=== PATIENT | female | born 1975 | race Caucasian/White ===

== ENCOUNTER 2020-03-16 17:20 | Emergency (ER) | payer SELFPAY ==
[2020-03-16] MEDS ORDERED: Succinylcholine 200 MG/10 ml SYRINGE FS ONE (17:21)
[2020-03-16] MEDS ORDERED: Iopamidol 370 76% 125 ML VIAL FS ONE (17:21)
[2020-03-16 18:02] LABS: Prothrombin Time 13.2 sec (12.0-14.7)
[2020-03-16 18:03] LABS: PTT 29.3 sec (22.9-36.1)
--- NOTE | 2020-03-16 18:03 | CT ---
CT BRAIN NONCONTRAST: DATE: 03/16/2020 5:41 PM HISTORY: 44-year-old female with acute stroke symptoms: Right-sided paralysis. Dr. Simons discussed the findings and recommendations by telephone with ER physician Dr. Perez at 5:56 PM 03/16/2020 COMPARISON: none FINDINGS: There is a dense left MCA sign consistent with clot in the M1 segment of the left middle cerebral art roxanna, extending into one of the M2 branches. At the left lower lateral posterior temporal and parieto-occipital cortex, there is apparent cortical thickening with effacement of local sulci, and mild hyperdensity, measuring approximately 5 x 1.5 cm. There is no mass effect or midline shift. No definite acute intra-axial or extra-axial hemorrhage. Ve ntricles are normal in size and configuration. Calvarium is intact. IMPRESSION: 1) thrombus in M1 segment and proximal M2 branch of left middle cerebral artery. 2) faint ill-defined elongated left lateral temporal parietal occipital intra-axial abnormality. Exac t etiology uncertain. This could be a low-grade glioma. Recommend MRI of brain with and without contrast on an elective basis.
[2020-03-16] MEDS ORDERED: Dexamethasone 4 mg/ml Vial ONE (18:09)
[2020-03-16 18:14] LABS: ALT (SGPT) 47 U/L (8-55); AST (SGOT) 54 U/L (5-34); Albumin 3.6 g/dL (3.5-5.0); Alkaline Phosphatase 93 U/L (40-110); Anion Gap 20 mmol/L (10-20); BUN (Urea Nitrogen) 9 mg/dL (7.0-18.7); Bilirubin, Total 0.3 mg/dL (0.2-1.2); CK (CPK) 32 U/L (29-168); Calc. Creatinine Clearance 0 mL/min (70-130); Calcium 8.6 mg/dL (7.8-10.44); Carbon Dioxide 17 mmol/L (22-29); Chloride 108 mmol/L (98-107); Estimated GFR-MDRD 83; Globulin 3.7 g/dL (2.4-3.5); Glucose 158 mg/dL (70-105); Potassium 5.2 mmol/L (3.5-5.1); Protein, Total 7.3 g/dL (6.0-8.3); Sodium 140 mmol/L (136-145)
[2020-03-16] MEDS ORDERED: Lidocaine-Prilocaine 2.5% Cream 5 GM TUBE ONE (18:20)
[2020-03-16] MEDS ORDERED: carBAMazepine 200 MG TAB ONE (18:20)
[2020-03-16 18:21] LABS: Hemoglobin 11.6 g/dL (12.0-16.0); Mean Corpuscular HGB CONC 30.1 g/dL (32.0-36.0); Mean Corpuscular Hemoglobin 22.7 pg (27.0-31.0); Mean Corpuscular Volume 75.5 fL (78.0-98.0); Mean Platelet Volume 7.6 fL (7.4-10.4); Platelet Count 134 thou/uL (130-400); RBC Distribution Width 19.2 % (11.5-14.5); Red Blood Cell (RBC) Count 5.11 mill/uL (4.20-5.40); White Blood Cell (WBC) Count 11.9 thou/uL (4.8-10.8)
[2020-03-16 18:24] LABS: Anisocytosis SLIGHT = 6-15 cells (100X) (0-5/hpf); Band 20 % (5-11); Eosinophils 2 % (0-10); Lymphocytes 7 % (21-51); MDiff Complete? YES; Metamyelocyte 1 % (0-0); Monocytes 2 % (0-10); Myelocyte 4 % (0-0); Neutrophil 54 % (42-75); Nucleated RBC 16 % (0); Platelet Morphology Comment Appears Adequate; Polychromasia SLIGHT = 2-3 cells (100X) (0-2/hpf); Reactive Lymphocytes 10 % (0-10)
--- NOTE | 2020-03-16 18:32 | CT ---
CT ANGIOGRAM NECK WITH CONTRAST CT ANGIOGRAM BRAIN WITH CONTRAST: DATE: 03/16/2020 5:58 PM HISTORY: 44-year-old female with acute stroke At 6:17 PM 03/16/2020 Dr. Simons discussed the MCA clot with Dr. Perez of the ER At 6:29 PM 03/16/2020 Dr. Simons notified data warehouse developer Mickie Frederick of the severe pulmonary embolism. e will notify Dr. Olmstead as soon as possible TECHNIQUE: After IV contrast injection, arterial bolus chasing technique scan performed from AP window to vertex of head. Coronal and sagittal 3-D MIP reconstructions. FINDINGS: The CTA confirms a long filling defect which begins at the proximal aspect of the M1 segment of the l eft MCA, and there is an apparently occludes the rest of the M1 segment as well as proximal portion of at least one of the M2 segments. There are contrast opacified other M2 branches and more distal br anches of the left MCA. The bilateral carotid siphons, M1 segment of right MCA, A1 and A2 segments of bilateral ACAs, intracr anial left vertebral, basilar, and bilateral final cleaner, are patent. The intracranial right vertebral artery terminates in PICA. What was thought to be a possible left temporal parietal occipital low-grade glioma on the original n oncontrast CT, does not persist on these additional images, and was probably artifact. Because of extremely large body habitus, the great vessels arising from the aortic arch are suboptima lly visualized. The aortic arch, proximal left common carotid artery, are probably normal in caliber. The cervical portions of the bilateral common carotid arteries and cervical portions of bila teral internal carotid arteries, are probably within normal limits in caliber. There is flow in the bilateral cervical portions of vertebral arteries, although they are poorly visu alized because of body habitus. There is severe biapical pulmonary infiltrates. There is a large volumes of thrombus in the distal portions of the bilateral main pulmonary arteries and the proximal branches. IMPRESSION: 1) acute thrombus in M1 segment and proximal portion of an M2 segment of the left middle cerebral art roxanna. 2) bilateral pulmonary thromboembolism with large clot burden 3) severe infiltrates: Evidence for severe COVID-19 pneumonia.
[2020-03-16 18:35] LABS: CKMB 1.6 ng/mL (0-6.6)
--- NOTE | 2020-03-16 18:50 | RAD ---
RADIOGRAPH CHEST 1 VIEW: DATE: 03/16/2020 TIME: 6:37 PM HISTORY: 44-year-old female with dyspnea COMPARISON: none FINDINGS: Lungs are hypoinflated. There are diffuse, somewhat severe interstitial infiltrates throughout both l ungs. The image is degraded by patient breathing motion artifact, especially the lung bases. No pneumothorax. IMPRESSION: Diffuse bilateral infiltrates: Evidence for bilateral COVID-19 pneumonia
--- NOTE | 2020-03-16 19:00 | CT ---
CT ANGIOGRAM NECK WITH CONTRAST CT ANGIOGRAM BRAIN WITH CONTRAST: DATE: 03/16/2020 5:58 PM HISTORY: 44-year-old female with acute stroke At 6:17 PM 03/16/2020 Dr. Simons discussed the MCA clot with Dr. Perez of the ER At 6:29 PM 03/16/2020 Dr. Simons notified house painting instructor Mickie Frederick of the severe pulmonary embolism. e will notify Dr. Olmstead as soon as possible TECHNIQUE: After IV contrast injection, arterial bolus chasing technique scan performed from AP window to vertex of head. Coronal and sagittal 3-D MIP reconstructions. FINDINGS: The CTA confirms a long filling defect which begins at the proximal aspect of the M1 segment of the l eft MCA, and there is an apparently occludes the rest of the M1 segment as well as proximal portion of at least one of the M2 segments. There are contrast opacified other M2 branches and more distal br anches of the left MCA. The bilateral carotid siphons, M1 segment of right MCA, A1 and A2 segments of bilateral ACAs, intracr anial left vertebral, basilar, and bilateral binding cementer french cord, are patent. The intracranial right vertebral artery terminates in PICA. What was thought to be a possible left temporal parietal occipital low-grade glioma on the original n oncontrast CT, does not persist on these additional images, and was probably artifact. Because of extremely large body habitus, the great vessels arising from the aortic arch are suboptima lly visualized. The aortic arch, proximal left common carotid artery, are probably normal in caliber. The cervical portions of the bilateral common carotid arteries and cervical portions of bila teral internal carotid arteries, are probably within normal limits in caliber. There is flow in the bilateral cervical portions of vertebral arteries, although they are poorly visu alized because of body habitus. There is severe biapical pulmonary infiltrates. There is a large volumes of thrombus in the distal portions of the bilateral main pulmonary arteries and the proximal branches. IMPRESSION: 1) acute thrombus in M1 segment and proximal portion of an M2 segment of the left middle cerebral art roxanna. 2) bilateral pulmonary thromboembolism with large clot burden 3) severe infiltrates: Evidence for severe COVID-19 pneumonia. Transcribed Date/Time: 03/16/2020 6:59 PM
== END 2020-03-16 21:57 | disposition short-term general hospital (02) ==
LOC: MADERS 17:20
DX: U07.1 COVID-19 (principal); J12.89 Other viral pneumonia; I66.02 Occlusion and stenosis of left middle cerebral artery; I26.99 Other pulmonary embolism without acute cor pulmonale
CPT/HCPCS: 0042T; 36416; 70450; 70496; 70498; 71045; 80053; 82550; 82553; 83605; 84484; 85025; 85379; 85610; 85730; 86140; 93005; 94760; 96365; 96375; J1100; J2997; Q9967

== ENCOUNTER 2022-08-20 13:18 | Outpatient (CLI) | payer OTHER | END 2022-08-20 13:19 | disposition home or self-care (01) | LOC: MADRAD 13:18 | PROVIDERS: ATTEND Registered Nurse | DX: M25.561 Pain in right knee (principal); R10.84 Generalized abdominal pain | CPT/HCPCS: 74019 ==

== ENCOUNTER 2022-11-12 21:21 | Emergency (ER) | payer OTHER ==
[2022-11-12 22:25] LABS: #Eosinphils 0.2 thou/uL (0.0-0.7); #Lymphocytes 2.2 thou/uL (1.20-3.40); #Monocytes 0.5 thou/uL (0.11-0.59); %Basophils 0.8 % (0.0-1.0); %Eosinophils 2.8 % (0.0-10.0); %Lymphocytes 36.8 % (21.0-51.0); %Monocytes 7.9 % (0.0-10.0); %Neutrophils 51.6 % (42.0-75.0); Hemoglobin 13.5 g/dL (12.0-16.0); Mean Corpuscular HGB CONC 32.5 g/dL (32.0-36.0); Mean Corpuscular Hemoglobin 30.7 pg (27.0-31.0); Mean Corpuscular Volume 94.6 fl (78.0-98.0); Mean Platelet Volume 10.8 fL (7.4-10.4); Platelet Count 248 10x3/uL (130-400); RBC Distribution Width 12.1 % (11.5-14.5); Red Blood Cell (RBC) Count 4.41 mill/uL (4.20-5.40); White Blood Cell (WBC) Count 5.9 10x3/uL (4.8-10.8)
[2022-11-12 22:47] LABS: CKMB 5.1 ng/mL (0-6.6)
[2022-11-12 22:50] LABS: ALT (SGPT) 13 U/L (8-55); AST (SGOT) 17 U/L (5-34); Alkaline Phosphatase 98 U/L (40-110); Anion Gap 16 mmol/L (10-20); BUN (Urea Nitrogen) 23 mg/dL (9.8-20.1); Bilirubin, Total 0.4 mg/dL (0.2-1.2); CK (CPK) 80 U/L (29-168); Calc. Creatinine Clearance 0 mL/min (70-130); Carbon Dioxide 19 mmol/L (22-29); Chloride 109 mmol/L (98-107); Estimated GFR 89; Globulin 2.8 g/dL (2.4-3.5); Glucose 83 mg/dL (70-105); Magnesium 1.7 mg/dL (1.6-2.6); Protein, Total 6.8 g/dL (6.0-8.3); Sodium 140 mmol/L (136-145)
== END 2022-11-13 02:27 | disposition short-term general hospital (02) ==
LOC: MADERS 21:21
DX: R00.1 Bradycardia, unspecified (principal); E11.9 Type 2 diabetes mellitus without complications; D64.9 Anemia, unspecified; G47.30 Sleep apnea, unspecified; Z86.73 Personal history of transient ischemic attack (TIA), and cerebral infarction without residual deficits; Z79.899 Other long term (current) drug therapy; Z79.01 Long term (current) use of anticoagulants
CPT/HCPCS: 36415; 71045; 80053; 82550; 82553; 83735; 83880; 84484; 85025; 93005